=== PATIENT | female | born 1955 | race Caucasian/White ===

== ENCOUNTER 2018-01-19 12:50 | Emergency (ER) | payer OTHER ==
[~2018-01-19] VITALS: Ht 162.6 cm; Wt 72.7 kg
[2018-01-19 12:51] VITALS: TEMP 97.6
[2018-01-19] MEDS ORDERED: COZAAR100 MG PO (12:54)
[2018-01-19] MEDS ORDERED: SINGULAIR 110 MG/TAB PO (12:54)
[2018-01-19] MEDS ORDERED: NORCO 325 MG-51 TAB PO (15:07)
[2018-01-19] MEDS ORDERED: CRUTCHES MC (15:33)
[2018-01-19 18:00] VITALS: BP 135/63; PULSE 65
== END 2018-01-19 18:00 | disposition home or self-care (01) ==
LOC: COL.ER 12:50
DX: S82.62XA Displaced fracture of lateral malleolus of left fibula, initial encounter for closed fracture (principal); S82.52XA Displaced fracture of medial malleolus of left tibia, initial encounter for closed fracture; I10 Essential (primary) hypertension; X50.0XXA Overexertion from strenuous movement or load, initial encounter
CPT/HCPCS: J2405; J2550; J2704; J2765; J7030; Q4045

== ENCOUNTER → 2018-07-06 | Outpatient (CLI) | payer OTHER ==
[~2018-07-06] MED LIST: COZAAR100 MG PO; CRUTCHES MC; NORCO 325 MG-51 TAB PO; SINGULAIR 110 MG/TAB PO
== END ==
LOC: COL.RAD 12:01
DX: M51.16 Intervertebral disc disorders with radiculopathy, lumbar region (principal); M48.061 Spinal stenosis, lumbar region without neurogenic claudication

== ENCOUNTER → 2018-07-14 | Outpatient (CLI) | payer OTHER ==
[~2018-07-14] VITALS: Ht 162.6 cm; Wt 78.2 kg
[~2018-07-14] MED LIST changes: +ASPIRIN E.C. 8181 MG PO; +B-121000 MCG PO; +CALCIUM ANTAC1000 M2 PO; +CLIMARA 0.1 PATCH.WK TD; +LIPITOR 10MG10 MG PO; +MASON NATURAL1200 MG PO; +MASON NATURAL2000 IU PO; +RHINOCORT0.032 MG/1 NS; +TRAVATAN Z 5 ML5 ML OU
[2018-07-14 10:02] VITALS: BP 151/72; PULSE 76
[2018-07-14 10:45] VITALS: BP 154/91; PULSE 78
== END ==
LOC: COL.RAD 09:17
DX: M51.16 Intervertebral disc disorders with radiculopathy, lumbar region (principal)
CPT/HCPCS: J3301

== ENCOUNTER → 2018-07-21 | Outpatient (CLI) | payer OTHER ==
[~2018-07-21] VITALS: Ht 162.6 cm; Wt 76.8 kg
[2018-07-21 11:00] VITALS: BP 143/83; PULSE 81
[2018-07-21 11:02] VITALS: BP 143/83; PULSE 81
[2018-07-21 11:49] VITALS: BP 148/92; PULSE 20
[2018-07-21 12:00] VITALS: BP 180/90; PULSE 143
[2018-07-21 12:03] VITALS: BP 178/90; PULSE 128
[2018-07-21 12:04] VITALS: BP 160/82; PULSE 120
== END ==
LOC: COL.CARD 10:33
DX: R07.9 Chest pain, unspecified (principal); E78.00 Pure hypercholesterolemia, unspecified
CPT/HCPCS: A9502; J2785

== ENCOUNTER → 2018-08-03 | Outpatient (CLI) | payer BC ==
[~2018-08-03] VITALS: Ht 162.6 cm; Wt 76.8 kg
[2018-08-03 12:00] VITALS: BP 159/92; PULSE 96
[2018-08-03 13:10] VITALS: BP 136/75; PULSE 66
--- NOTE | 2018-08-03 13:50 | NUR ---
pt up and ambulates with nurse without difficulty. Pt states numbness and tingling continue to left foot. Pt reports has history of surgery to left foot and has numbness and tingling at times in this foot. Just states is more than normal. Pt able to bear weight on foot without difficulty. Pt into wheelchair and out to car. Pt up and into car without assistance.
== END ==
LOC: COL.RAD 11:45
DX: M51.26 Other intervertebral disc displacement, lumbar region (principal)
CPT/HCPCS: J3301

== ENCOUNTER → 2019-04-13 | Outpatient (CLI) | payer BC | LOC: COL.VAS 04-11 13:30 | DX: R09.89 Other specified symptoms and signs involving the circulatory and respiratory systems (principal) ==

== ENCOUNTER → 2019-04-18 | Outpatient (CLI) | payer BC | LOC: COL.RAD 12:00 | DX: I65.21 Occlusion and stenosis of right carotid artery (principal); I77.1 Stricture of artery | CPT/HCPCS: Q9967 ==

== ENCOUNTER → 2019-10-04 | Outpatient (CLI) | payer BC | LOC: MC.RAD 15:39 | DX: Z12.31 Encounter for screening mammogram for malignant neoplasm of breast (principal) ==

== ENCOUNTER → 2020-07-09 | Outpatient (CLI) | payer BC | LOC: COL.CARD 08:06 | DX: R00.2 Palpitations (principal) ==

== ENCOUNTER → 2020-07-11 | Outpatient (CLI) | payer BC | LOC: COL.VAS 13:07 | DX: I65.23 Occlusion and stenosis of bilateral carotid arteries (principal) ==

== ENCOUNTER → 2020-10-08 | Outpatient (CLI) | payer BC | LOC: MC.RAD | DX: Z12.31 Encounter for screening mammogram for malignant neoplasm of breast (principal) ==

== ENCOUNTER → 2021-10-02 | Outpatient (CLI) | payer MEDICARE, BC | LOC: ZCOL.LAB 11:48 | DX: H04.302 Unspecified dacryocystitis of left lacrimal passage (principal) ==

== ENCOUNTER → 2021-11-25 | Outpatient (CLI) | payer MEDICARE, BC | LOC: MC.RAD 10:03 | DX: Z12.31 Encounter for screening mammogram for malignant neoplasm of breast (principal) ==

== ENCOUNTER → 2023-09-09 | Outpatient (CLI) | payer MEDICARE, BC | LOC: COL.RAD 09:48 | DX: I65.23 Occlusion and stenosis of bilateral carotid arteries (principal) ==